=== PATIENT | female | born 1950 | race Caucasian/White ===

== ENCOUNTER → 2017-08-03 | Outpatient (CLI) | payer MEDICARE ==
[~2017-08-03] MED LIST: ASPIR 8181 MG PO; ETODOLAC 400 M400 M1 PO; GENERLAC10 GM/15 M PO; LANTUS100 UNIT/M SUBQ; LISINOPRIL10 MG PO; OMEPRAZOLE20 M2; OXYBUTYNIN 5 MG5 M2 PO; OXYCODONE HCL 55 MG
== END ==
LOC: M.RAD 07-29 11:47
DX: Z12.31 Encounter for screening mammogram for malignant neoplasm of breast (principal); M47.894 Other spondylosis, thoracic region; M47.896 Other spondylosis, lumbar region; R07.89 Other chest pain; M85.88 Other specified disorders of bone density and structure, other site; M47.892 Other spondylosis, cervical region; I10 Essential (primary) hypertension; Z78.0 Asymptomatic menopausal state; Z87.891 Personal history of nicotine dependence

== ENCOUNTER → 2017-10-28 | Outpatient (CLI) | payer MEDICARE | LOC: M.RAD 11:11 | DX: M79.602 Pain in left arm (principal) ==

== ENCOUNTER → 2018-12-02 | Outpatient (CLI) | payer MEDICARE, OTHER | LOC: M.ULTRA 10:00 | DX: N28.1 Cyst of kidney, acquired (principal); N13.30 Unspecified hydronephrosis ==

== ENCOUNTER → 2021-03-18 | Outpatient (CLI) | payer MEDICARE ==
[2021-03-18 08:09] LABS: POTASSIUM 4.1 mmol/L (3.5-5.1)
== END ==
LOC: M.LAB 05:48
PROVIDERS: ATTEND Anesthesiology
DX: E11.9 Type 2 diabetes mellitus without complications (principal); E87.6 Hypokalemia